=== PATIENT | male | born 1935 | race Caucasian/White ===

== ENCOUNTER 2024-04-15 02:46 | Observation (INO) | payer MEDICARE, OTHER, SELFPAY ==
[2024-04-14 17:26] VITALS: BP 133/52
--- NOTE | 2024-04-14 17:28 | ED.GENMED ---
ED Provider Triage
<CHRISS Miller - Last Filed: 04/14/24 17:34>
-
Patient seen by provider in Triage?: Seen in Triage
Attestation: A medical screening examination has been initiated by a qualified medical provider. Based on the assessment performed at this time, it has been determined that an emergent medical condition may exist and the patient has been informed
that further medical evaluation and possible additional diagnostic testing may be needed.
HPI: 88 yr old male brought by family for n/v/d . Started at 3 pm. Vomited at least 6 times, 2x diarrhea. Family also reports pt seems mildly short winded every since s/s of n/v/d started. Pt denies shortness of breath now .
GENERAL: Alert , in no apparent distress
EYE: No visual abnormalities.
NECK: Trachea midline
ENT: No visible abnormalities.
LUNGS: No acute respiratory distress
NEUROLOGICAL: Alert and oriented
SKIN: Skin intact. No visible changes.
MUSCULOSKELETAL: Moving extremities normally
PSYCH: Normal and appropriate interaction.
This is a medical evaluation conducted in person to initiate diagnostic evaluation and provide initial therapeutics. Please see further documentation by the treating clinician.
History of Present Illness
<CHRISS Miller - Last Filed: 04/14/24 17:34>
General
Chief Complaint: Abdominal Symptoms
Time Seen by Provider: 04/14/24 21:27
<CHRISS Leon - Last Filed: 04/15/24 02:29>
General
Source: patient
Exam Limitations: none
History of Present Illness
History of Present Illness:
This is a 88 year old male that comes in with c/o vomiting and diarrhea. States that this started at 3pm today. Family states that he was so weak that he was unable to get out of the chair to get to the bathroom. State that he had a little chest
pain with SOB and abd pain. States that he was also chilled. Denies any fever, headache, dizziness. Patient has chronic indwelling curran catheter.
Review of Systems
<CHRISS Leon - Last Filed: 04/15/24 02:29>
Review of Systems
All Other Systems: ROS reviewed and negative except as documented in HPI and ROS
Constitutional: Reports chills; Denies fever
EENT: Reports no symptoms
Respiratory: Reports trouble breathing; Denies cough
Cardiac: Reports chest pain
ABD/GI: Reports abdominal pain, nausea, vomiting and diarrhea
: Reports no symptoms
Musculoskeletal: Reports no symptoms
Skin: Reports no symptoms
Neurological: Reports weakness; Denies dizzy or headache
Psychiatric: Reports no symptoms
Phy Exam
<CHRISS Leon - Last Filed: 04/15/24 02:29>
General Physical Exam
General Presentation: no apparent distress
General age: appears stated age
General Skin: warm and dry
General Habitus: elderly
General Mental: alert
General Hydration: dry mucous membranes
ENT Exam
ENT Exam: TM's normal, pharynx normal and neck supple
Eye Exam
Eye Exam: EOMI
Cardiovascular Exam
Cardiovascular Exam: regular rate/rhythm and normal peripheral pulses
Pulmonary Exam
Pulmonary Exam: lungs clear, no respiratory distress, no rales, chest non tender, no crackles, no rhonchi, no wheezing and no cough
Gastrointestinal Exam
Gastrointestinal Exam: normal bowel sounds, non tender, soft, no organomegaly, no pulsatile mass and non distended
Musculoskeletal Exam
Musculoskeletal Exam: full ROM and edema (+2 pitting edema of the lower legs)
Skin Exam
Skin Exam: normal color, warm/dry, no rash and no petechia
Psychiatric Exam
Psychiatric Exam: normal mood/affect
Course
<CHRISS Miller - Last Filed: 04/14/24 17:34>
Orders/Labs/Results
Orders:
Orders
04/14/24 17:31
Chest [CR Chest - 2 Views ] Urgent
Comment:
Reason For Exam: SOB
04/14/24 17:32
Ondansetron Orally Disint [Zofran Odt (Orally Disintegrating)] 4 mg PO NOW STA
04/14/24 17:46
Complete Blood Count/With Diff Urgent
Comprehensive Metabolic Panel Urgent
04/14/24 22:03
0.9% Sodium Chloride 1000 ml [Nss] 1,000 ml IV BOLUS
Ondansetron Injectable [Zofran] 4 mg IV NOW STA
04/14/24 22:06
Electrocardiogram (*1) Urgent
Reason for Study: Chest Pain
EKG- Treatment ONCE
04/14/24 23:40
Troponin I Urgent
Norovirus by PCR Urgent
JOLLY Source: Feces/Stool
Specimen Description:
Date Specimen was Collected: 04/14/24
Time Specimen was Collected: 22:06
04/15/24 00:15
CT Abd/pelvis W Iv Cont Urgent
Reason For Exam: abd pain
04/15/24 02:24
Admit/Transfer Patient As Directed
Co-Sign Provider:
Level of Care: Observation services
Assign to:: Medical/Surgical
Physician / Group: Dax
Diagnosis: Gastroenteritis, L1 Compression Fracture
PRN Pain Medication Management As Directed
May give lesser potent ordered pain med per pt: Yes
preference::
Protocol:: Medication orders for pain may be administered in a
manner that supports deferring to patient preference
when the pt is:
- Requesting an ordered lesser potent pain medication.
Least to most potent pain medications are defined
as: acetaminophen < NSAID < tramadol < opioids
(morphine, oxycodone, hydromorphone).
- Requesting a lesser dose of the same medication IF
ORDERED.
- Requesting a less intrusive route of administration
if both routes are prescribed by the provider (PO <
IV).
04/15/24 02:25
Code Status As Directed
Resuscitation Status: Do not resuscitate
Reached after discussion with pt or family/Healthcare POA: Yes
DNR Bracelet Application ONCE
Abnormal Lab Results
04/14/24
17:46
RBC 3.52 L 10^6/uL
(4.70-6.10)
Hgb 11.4 L g/dL
(13.0-18.0)
Hct 34.5 L %
(39.0-52.0)
MCV 98.0 H fL
(80.0-94.0)
MCH 32.4 H pg
(27.0-31.0)
RDW 14.7 H %
(11.5-14.5)
MPV 10.7 H fL
(7.4-10.4)
Absolute Neuts (auto) 7.9 H 10^3/uL
(1.4-6.5)
Absolute Lymphs (auto) 1.0 L 10^3/uL
(1.2-3.4)
Neutrophils % 81.6 H %
(42.2-75.2)
Lymphocytes % 10.6 L %
(20.5-51.1)
Potassium 5.5 H mmol/L
(3.5-5.1)
Glucose 208 H mg/dl
(70-99)
AST 69 H U/L
(17-59)
Alkaline Phosphatase 260 H U/L
(38-126)
04/14/24 17:46
04/14/24 17:46
Vital Signs
Initial and Last Documented VS:
Initial Vital Signs
Temp Pulse Resp BP Pulse Ox
98.6 F 85 18 133/52 94
04/14/24 17:26 04/14/24 17:26 04/14/24 17:26 04/14/24 17:26 04/14/24 17:26
Last Documented Vital Signs
Temp Pulse Resp BP Pulse Ox
98.6 F 72 18 155/59 96
04/14/24 17:26 04/14/24 21:30 04/14/24 21:33 04/14/24 21:28 04/14/24 21:30
<CHRISS Leon - Last Filed: 04/15/24 02:29>
Orders/Labs/Results
Orders:
Orders
04/14/24 17:31
Chest [CR Chest - 2 Views ] Urgent
Comment:
Reason For Exam: SOB
04/14/24 17:32
Ondansetron Orally Disint [Zofran Odt (Orally Disintegrating)] 4 mg PO NOW STA
04/14/24 17:46
Complete Blood Count/With Diff Urgent
Comprehensive Metabolic Panel Urgent
04/14/24 22:03
0.9% Sodium Chloride 1000 ml [Nss] 1,000 ml IV BOLUS
Ondansetron Injectable [Zofran] 4 mg IV NOW STA
04/14/24 22:06
Electrocardiogram (*1) Urgent
Reason for Study: Chest Pain
EKG- Treatment ONCE
04/14/24 23:40
Troponin I Urgent
Norovirus by PCR Urgent
JOLLY Source: Feces/Stool
Specimen Description:
Date Specimen was Collected: 04/14/24
Time Specimen was Collected: 22:06
04/15/24 00:15
CT Abd/pelvis W Iv Cont Urgent
Reason For Exam: abd pain
04/15/24 02:24
Admit/Transfer Patient As Directed
Co-Sign Provider:
Level of Care: Observation services
Assign to:: Medical/Surgical
Physician / Group: Dax
Diagnosis: Gastroenteritis, L1 Compression Fracture
PRN Pain Medication Management As Directed
May give lesser potent ordered pain med per pt: Yes
preference::
Protocol:: Medication orders for pain may be administered in a
manner that supports deferring to patient preference
when the pt is:
- Requesting an ordered lesser potent pain medication.
Least to most potent pain medications are defined
as: acetaminophen < NSAID < tramadol < opioids
(morphine, oxycodone, hydromorphone).
- Requesting a lesser dose of the same medication IF
ORDERED.
- Requesting a less intrusive route of administration
if both routes are prescribed by the provider (PO <
IV).
04/15/24 02:25
Code Status As Directed
Resuscitation Status: Do not resuscitate
Reached after discussion with pt or family/Healthcare POA: Yes
DNR Bracelet Application ONCE
Abnormal Lab Results
04/14/24
17:46
RBC 3.52 L 10^6/uL
(4.70-6.10)
Hgb 11.4 L g/dL
(13.0-18.0)
Hct 34.5 L %
(39.0-52.0)
MCV 98.0 H fL
(80.0-94.0)
MCH 32.4 H pg
(27.0-31.0)
RDW 14.7 H %
(11.5-14.5)
MPV 10.7 H fL
(7.4-10.4)
Absolute Neuts (auto) 7.9 H 10^3/uL
(1.4-6.5)
Absolute Lymphs (auto) 1.0 L 10^3/uL
(1.2-3.4)
Neutrophils % 81.6 H %
(42.2-75.2)
Lymphocytes % 10.6 L %
(20.5-51.1)
Potassium 5.5 H mmol/L
(3.5-5.1)
Glucose 208 H mg/dl
(70-99)
AST 69 H U/L
(17-59)
Alkaline Phosphatase 260 H U/L
(38-126)
04/14/24 17:46
04/14/24 17:46
H/H slightly low. Anemia, Hyperkalema, Hyperglycemia. AST elevation. Alk phos elevation
Vital Signs
Initial and Last Documented VS:
Initial Vital Signs
Temp Pulse Resp BP Pulse Ox
98.6 F 85 18 133/52 94
04/14/24 17:26 04/14/24 17:26 04/14/24 17:26 04/14/24 17:26 04/14/24 17:26
Last Documented Vital Signs
Temp Pulse Resp BP Pulse Ox
98.6 F 72 18 155/59 96
04/14/24 17:26 04/14/24 21:30 04/14/24 21:33 04/14/24 21:28 04/14/24 21:30
<CHRISS Leon - Last Filed: 04/15/24 02:29>
MDM/Problems Addressed
Differential Diagnosis Includes:
Norovirus, Weakness
MDM/Problems Addressed:
This is a 88 year old male that comes in with c/o vomiting and diarrhea. States that this started today and was unable to get out of the chair.
Will check lab, Chest x-ray, sent stool and give IV fluids.
Into see patient. Patient was sleeping but when awake state that he has pain now also in the back and lower abd.
Back into see patient and family. Explained that he has Enteritis which is causing the vomiting and diarrhea. This is viral and will go away on its own. The back pain is due to a L1 fracture. Patient has been admitted and the hospitalist have been
notifed.
Chronic conditions affecting care: DM and Cancer
Acute Exacerbation and/or Progression of Chronic Illness:
NA
<CHRISS Leon - Last Filed: 04/15/24 02:29>
*Radiology
Radiology exam reviewed: radiology read reviewed (Chest-No active cardiopulmonary disease. CT night hawk- Acute fracture through the L1 vertebral body, with mild widening of the anterior fracture fragments. Mildly prominent loops of small bowel
within the central abdomen, may represent underlying enteritis. Fluid throughout the colon, which can ), all reviewed NAD by ED Provider (CT cont- seen in the underlying diarrheal state. Incidentals: Small hiatal hernia. Cholelithiasis. No bowel
obstruction. Normal appendix. No obstructive uropathy. No hepatic or pancreatic mass. No abdominal aortic aneurysm. Bibasilar atelectasis. Calcified coronary atherosclerosis. ) and other (CT cont- NO acute abnormality within the visualized soft
tissues. )
*Pulse Oximetry
Patient hypoxic: no
*EKG
Interpreted by ED Provider?: Yes
Heart Rate: 76
Rate: normal
Rhythm: sinus
[place]: left axis deviation
Interval: first degree heart block
QRS Pattern: normal QRS
Ischemia: no ischemia
*Forest Economist Interpretation
Rate: normal
Heart Rate: 71
Rhythm: sinus
*Critical Care Note
Total Time (30-74mins, 75-104mins- exclusive of procedures): Not Applicable
ED Attending Note
<CHRISS Miller - Last Filed: 04/14/24 17:34>
-
Portions of this chart may have been created with voice recognition software.� Occasional wrong word or��sound alike� substitutions may have occurred due to the inherent limitations of voice recognition software.
Discharge Plan
Departure
Patient Disposition: Admit
Date of Disposition: 04/15/24
Time of Disposition: 01:41
Admit to: Med/Surg
Presentation/result/management discussed w/ accepting MD/DO: Hospitalist
Patient with high blood pressure during this ER visit?: Yes
Condition: Good
Covid-19: Not Applicable
Discharge Problem:
Weakness, Abdominal pain, vomiting, and diarrhea, Fracture of L1 vertebra
Prescriptions:
No Action
atorvastatin 20 mg Tablet
20 mg PO HS
Theragen Tablet
1 tab PO DAILY
aspirin 81 mg Tablet,Delayed Release (Dr/Ec)
81 mg PO DAILY
metformin 1,000 mg Tablet
1,000 mg PO BID
losartan 25 mg Tablet
25 mg PO DAILY
ibuprofen 200 mg Tablet
400 mg PO Q8HPRN PRN (Reason: mild pain)
metoprolol succinate 25 mg Tablet Extended Release 24 Hr
12.5 mg PO DAILY
glipizide 5 mg Tablet
5 mg PO BID
insulin glargine U-300 conc [Toujeo SoloStar U-300 Insulin] 300 unit/mL (1.5 mL) Insulin Pen
40 unit SC HS
Referrals:
Josh Varela MD [Family Provider] -
Interventions
Interventions:
*Risk Screen - Suicide Last Done: 04/14/24 17:26
*General Assessment Last Done: 04/14/24 17:26
*Neglect/Abuse Screening Last Done: 04/14/24 17:26
ED- Fall Risk Assessment Last Done: 04/14/24 21:42
*ED COVID-19 Vaccine History Last Done: 04/14/24 21:34
GM-Hqtysb-Zhazlqfhct Assessment Last Done: 04/14/24 21:34
Discharge Date and Time
Print Language: LUXEMBOURGISH
[2024-04-14] MEDS: ZOFRAN ODT (ORALLY DISINTEGRATING) 4 MG PO (17:35)
[2024-04-14 18:05] LABS: % Basophils 0.2 % (0-2); % Immature Granulocytes 0.3 % (0-0.5); % Lymphocytes 10.6 % (20.5-51.1); % Monocytes 6.3 % (1.7-9.3); % Neutrophils 81.6 % (42.2-75.2); Absolute Eosinophils 0.1 10^3/uL (0-0.7); Absolute Monocytes 0.6 10^3/uL (0.1-0.6); Absolute Neutrophils 7.9 10^3/uL (1.4-6.5); Hematocrit 34.5 % (39.0-52.0); Hemoglobin 11.4 g/dL (13.0-18.0); Mean Corpuscular Hgb 32.4 pg (27.0-31.0); Mean Platelet Volume 10.7 fL (7.4-10.4); Nucleated Red Blood Cells % 0 % (-); Platelet Count 138 10^3/uL (130-400); Red Blood Cell Count 3.52 10^6/uL (4.70-6.10); Red Cell Dist. Width 14.7 % (11.5-14.5); White Blood Cell Count 9.7 10^3/uL (4.8-10.8)
[2024-04-14 18:16] LABS: ALT (SGPT) 46 U/L (0-50); AST (SGOT) 69 U/L (17-59); Albumin 4.1 g/dl (3.5-5.0); Alkaline Phosphatase 260 U/L (38-126); Blood Urea Nitrogen 18 mg/dl (9-20); Calcium 9.5 mg/dl (8.4-10.2); Carbon Dioxide 24 mmol/L (22-30); Chloride 100 mmol/L (98-107); Glucose 208 mg/dl (70-99); Potassium 5.5 mmol/L (3.5-5.1); Sodium 136 mmol/L (135-145); Total Bilirubin 0.7 mg/dl (0.2-1.3); Total Protein 7.7 g/dl (6.3-8.2); eGFR > 60.00
[2024-04-14 21:28] VITALS: BP 155/59
[2024-04-14 21:33] VITALS: BMI 34.5
[2024-04-14 22:00] VITALS: BP 135/64
[2024-04-14 23:00] VITALS: BP 146/65
[2024-04-14] MEDS: ZOFRAN 4 MG IV (23:57)
[2024-04-14] MEDS: NSS 1000 IV (23:59)
[2024-04-15 01:01] LABS: Troponin I 0.014 ng/ml
--- NOTE | 2024-04-15 02:30 | HPS.HSE ---
Family Physician
-
Family Physician: Josh Varela
Chief Complaint
-
N/V/D
History of Present Illness
Patient is an 88y M with PMH significant for ASCVD, DM-II and prostate cancer / MACEDO who presents to ED complaining of N/V/D. History obtained from patient and his family at the bedside. Patient states that he developed sudden onset of N/V/D
around 3 PM today. He lives at assisted living facility and several residents have had similar symptoms lately. He denies any recent abx use or other illness. Patient had multiple episodes of stool incontinence this afternoon and continued emesis
and ultimately presented to the ED for further evaluation.
Patient also notes that he has suffered a few falls recently. He ambulates with a walker and family has noted gradual loss of balance / unsteady gait.
His most recent fall was Janelle when he fell backwards and 'sat down hard'. He was helped up by family. He has been able to ambulate with his walker since that time - though he does have discomfort with [id number] and other such position
changes.
Medical History
Past Medical History
Past Medical History: Reports Other
Additional Past Medical History:
ASCVD
Hypertension
DM-II
Prostate Cancer
Chronic Atonic Bladder
Skin Cancer
Obesity
Past Surgical History: Reports Other
Additional Past Surgical History:
PTCA with Stent (x 2)
Bilateral Shoulder Surgeries
Mohs Surgery
Social History
Tobacco: Former Smoker
Alcohol: None
Drug: None
Living: Assisted Living
Family History
Family History: Not pertinent
Allergies / Home Medications
Allergies reflects when Allergies were last updated in [facility].
Home Medications with original date entered in [facility]
Allergy/Medication List:
Allergies
Allergy/AdvReac Type Severity Reaction Status Date / Time
amoxicillin Allergy Rash Verified 04/14/24 17:26
Home Medications
aspirin 81 mg tablet,delayed release 81 mg PO DAILY 04/14/24
atorvastatin 20 mg tablet 20 mg PO HS 04/14/24
glipizide 5 mg tablet 5 mg PO BID 04/14/24
ibuprofen 200 mg tablet 400 mg PO Q8HPRN PRN mild pain 04/14/24
insulin glargine U-300 conc 300 unit/mL (1.5 mL) subcutaneous pen (Toujeo SoloStar U-300 Insulin) 40 unit SC HS 04/14/24
losartan 25 mg tablet 25 mg PO DAILY 04/14/24
metformin 1,000 mg tablet 1,000 mg PO BID 04/14/24
metoprolol succinate 25 mg tablet,extended release 24 hr 12.5 mg PO DAILY 04/14/24
therapeutic multivitamin 1 tab PO DAILY 04/14/24
Review of Systems
-
History Source: Patient
A 12 point ROS was completed and negative except as noted: Yes
Constitutional: Reports Fatigue; Denies Fever or Chills
Respiratory: Denies Cough or Trouble Breathing
Cardiac: Denies Chest Pain or Palpitations
Abdomen/GI: Reports Abdominal Pain, Nausea, Vomiting and Diarrhea
: Reports Stephens; Denies Flank Pain or Bleeding
Musculoskeletal: Reports Other (Back Pain); Denies Joint Pain or Edema
Neurological: Denies Dizzy or Headache
Psych: Denies Depression or Anxiety
Physical Exam
Vital Signs
Vital Signs
Temp Pulse Resp BP Pulse Ox
98.6 F 72 18 155/59 96
04/14/24 17:26 04/14/24 21:30 04/14/24 21:33 04/14/24 21:28 04/14/24 21:30
Physical Exam
General: Other (88y M in no acute distress.)
HEENT: Moist mucous membranes, PERRLA and Other (Neck supple.)
Respiratory: Clear; No Wheezes, Rales or Rhonchi
Cardiac: S1/S2 and Regular Rhythm; No Murmur
GI: Other (Abdomen is softly distended. Diffusely, mildly tender. Hyperactive bowel sounds.)
Musculoskeletal: No Clubbing, No Cyanosis and No Edema
Neuro: AO x 3
Laboratory Results
-
04/14/24 17:46
04/14/24 17:46
Laboratory Results
Total Bilirubin 0.7 mg/dl (0.2-1.3) 04/14/24 17:46
AST 69 U/L (17-59) H 04/14/24 17:46
ALT 46 U/L (0-50) 04/14/24 17:46
Alkaline Phosphatase 260 U/L (38-126) H 04/14/24 17:46
Troponin I 0.014 ng/ml 04/14/24 23:40
Impression/Plan
-
A/P: Patient is an 88y M with PMH significant for ASCVD, DM and hypertension who presents to ED complaining of N/V/D.
Gastroenteritis
- Observe overnight for further evaluation and treatment.
- Abrupt onset of N/V/D with known sick contacts.
- Afebrile, no significant leukocytosis, CT with vague changes of enteritis and otherwise unremarkable.
- Check Norovirus PCR. Follow contact precautions for now.
- Supportive care with antiemetics, IVFs, etc.
- Follow for clinical improvement.
L1 Compression Fracture
Chronic Ambulatory Dysfunction
- s/p fall on 04/05/24.
- Patient has been ambulatory since; albeit with some pain.
- PT / OT evaluations.
- Continue pain control with Tylenol.
- May benefit from ongoing PT after discharge.
DM-II
- Poorly controlled as an outpatient with A1C > 10%.
- Continue basal : bolus insulin regimen for now.
- Hold oral medications until acute GI symptoms improve.
- Follow glucose and cover with SSI as needed.
ASCVD
- Stable. No current chest pain, dyspnea, etc.
- Continue current med regimen including ASA, statin, etc.
Atonic Bladder
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
- Stable. Maintain Stephens catheter.
DVT Prophylaxis: Subcut Heparin
Code Status: DNR
[2024-04-15 02:53] VITALS: BP 181/76
[2024-04-15 04:00] VITALS: BP 165/76
[2024-04-15] MEDS: MOTRIN 600 MG PO (04:53)
[2024-04-15] MEDS: NSS 1000 IV ×3 (05:00→17:00)
[2024-04-15 05:40] LABS: Hematocrit 32.3 % (39.0-52.0); Hemoglobin 10.9 g/dL (13.0-18.0); Mean Corp Hgb Conc. 33.7 g/dL (33.0-37.0); Mean Corpuscular Hgb 32.8 pg (27.0-31.0); Mean Corpuscular Volume 97.3 fL (80.0-94.0); Mean Platelet Volume 10.5 fL (7.4-10.4); Platelet Count 117 10^3/uL (130-400); Red Blood Cell Count 3.32 10^6/uL (4.70-6.10); Red Cell Dist. Width 14.7 % (11.5-14.5); White Blood Cell Count 5.6 10^3/uL (4.8-10.8)
[2024-04-15 05:45] LABS: Blood Urea Nitrogen 20 mg/dl (9-20); Calcium 8.5 mg/dl (8.4-10.2); Carbon Dioxide 23 mmol/L (22-30); Chloride 100 mmol/L (98-107); Estimated Creatinine Clearance 70 ml/min; Glucose 267 mg/dl (70-99); Potassium 4.6 mmol/L (3.5-5.1); Sodium 134 mmol/L (135-145); eGFR > 60.00
[2024-04-15 06:00] VITALS: BMI 34.5
[2024-04-15 09:30] VITALS: BP 116/56; PULSE 67; O2SAT 94
[2024-04-15] MEDS: ASPIR LOW (ENTERIC COATED) 81 MG PO (09:58)
[2024-04-15] MEDS: TYLENOL 1000 MG PO ×3 (09:58→21:43)
[2024-04-15 09:59] LABS: Glucose - Point of Care 244 mg/dl (70-99)
[2024-04-15] MEDS: TOPROL XL PO (10:06)
[2024-04-15] MEDS: NSS (PRESERVATIVE FREE) 10 ML IV (10:07)
[2024-04-15] MEDS: PROTONIX IV 40 MG IV (10:07)
[2024-04-15] MEDS: HEPARIN 5000 UNITS SC ×2 (10:07→21:43)
[2024-04-15 11:29] LABS: Glucose - Point of Care 253 mg/dl (70-99)
[2024-04-15] MEDS: NOVOLOG FLEXPEN-MODERATE RESISTANCE 5 UNITS SC (11:29)
[2024-04-15 11:57] LABS: Glycohemoglobin (HgbA1c) 11.3 % (4.0-5.6)
[2024-04-15] MEDS: NOVOLOG FLEXPEN-MODERATE RESISTANCE SC (15:11)
--- NOTE | 2024-04-15 16:41 | W.PN.UPDATE ---
Update Note
Progress Note Update
Seen by Dr. Verduzco this morning. Admitted for acute nausea vomiting diarrhea.
Stool culture came back positive for norovirus.
Hesitant to have oral diet as he is still does not feel well. Nausea is much improved no diarrhea.
Continue with symptomatic treatment.
[2024-04-15] MEDS: ZINC OXIDE OINTMENT 1 APPLIC TOPICAL ×2 (16:45→21:43)
[2024-04-15 16:52] VITALS: BP 148/70
[2024-04-15 18:02] LABS: Glucose - Point of Care 182 mg/dl (70-99)
[2024-04-15] MEDS: ULTRAM 25 MG PO (18:15)
[2024-04-15] MEDS: NOVOLOG FLEXPEN-MODERATE RESISTANCE 1 UNITS SC (18:17)
--- NOTE | 2024-04-15 19:44 | PTCARENOTE ---
pt from ED this evening for this nurse. pt with family at bedside. pt norovirus positive but last bm was in AM. pt aaox3. verbalizing 10/10 back pain. verbal for prn received via telephone. heel foams applied. cream applied to rectum and added to
MAR for continuous use. pt on specialty bed at this time. tolerted clear liquid diet. pt and family state that belly seems more firm and distended than usual. no pain when nurse palpated.
[2024-04-15] MEDS: LIPITOR 20 MG PO (21:43)
[2024-04-15] MEDS: LANTUS 0.32 UNITS SC (21:43)
[2024-04-15 22:05] LABS: Glucose - Point of Care 177 mg/dl (70-99)
[2024-04-15] MEDS: MOTRIN 400 MG PO (23:00)
[2024-04-15 23:30] VITALS: BP 127/65
[2024-04-16] MEDS: NSS 1000 IV (01:24)
[2024-04-16 06:00] VITALS: BMI 34.3
[2024-04-16 07:30] VITALS: BP 111/64
[2024-04-16 07:42] LABS: Glucose - Point of Care 130 mg/dl (70-99)
[2024-04-16] MEDS: NOVOLOG FLEXPEN-MODERATE RESISTANCE SC (09:06)
[2024-04-16] MEDS: PROTONIX IV 40 MG IV (09:07)
[2024-04-16] MEDS: ASPIR LOW (ENTERIC COATED) 81 MG PO (09:07)
[2024-04-16] MEDS: NSS (PRESERVATIVE FREE) 10 ML IV (09:08)
[2024-04-16] MEDS: HEPARIN 5000 UNITS SC ×2 (09:08→22:05)
[2024-04-16] MEDS: TOPROL XL 12.5 MG PO (09:09)
[2024-04-16] MEDS: TYLENOL 1000 MG PO ×3 (09:09→22:04)
[2024-04-16] MEDS: ZINC OXIDE OINTMENT 1 APPLIC TOPICAL ×3 (09:16→22:06)
[2024-04-16 11:45] LABS: Glucose - Point of Care 165 mg/dl (70-99)
--- NOTE | 2024-04-16 13:26 | W.PN.HOSP.TC ---
Today's Communication/Plan
-
DC planning
Assessment / Plan
Assessment / Plan
A/P: Patient is an 88y M with PMH significant for ASCVD, DM and hypertension who presents to ED complaining of N/V/D.
Acute Norovirus Gastroenteritis
- Resolved
- Tolerating diet
L1 Compression Fracture
Chronic Ambulatory Dysfunction
- s/p fall on 04/05/24.
- Patient has been ambulatory since; albeit with some pain.
- PT / OT evaluations noted -recommend return to [facility] / but acc to RN today not moving much due to pain.
- Continue pain control with Tylenol.
- CW PT
DM-II
- Poorly controlled as an outpatient with A1C > 10%. 11.3 on this adx
- Continue basal : bolus insulin regimen for now.Adjust insulin as needed
- Resum oral medications until acute GI symptoms improve.
- Follow glucose and cover with SSI as needed.
-Patient seen and assessed Lantus was increased to 40 units in the last month. He follows with PCP for his diabetes management.
ASCVD
- Stable. No current chest pain, dyspnea, etc.
- Continue current med regimen including ASA, statin, etc.
Atonic Bladder
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
- Stable. Maintain Stephens catheter.
DVT Prophylaxis: Subcut Heparin
Code Status: DNR
DC to [facility] depending on PT eval
Anticipated Discharge: Today
Subjective/Interval History
-
Date of Service: April 16, 2024
Resolved GI symptoms of nausea vomiting and diarrhea.
His main complaint is low back pain from his recent vertebral fracture. Denies any radiation to the legs. No leg weakness.
Objective Data
-
Vital Signs:
Vital Signs
Temp Pulse Resp BP Pulse Ox
97.8 F 56 18 111/64 97
04/16/24 07:30 04/16/24 07:30 04/16/24 07:30 04/16/24 07:30 04/16/24 07:30
I&O
04/15/24 04/16/24 04/17/24
06:59 06:59 06:59
Intake Total 200 / 200
Output Total 800 / 800
Balance 200 / -600 -800 / -800
Review of Systems
-
Constitutional: Denies Fever
Respiratory: Denies Trouble Breathing
Cardiac: Denies Chest Pain
Neuro: Denies Dizzy
Physical Exam
-
General: Comfortable
Respiratory: Non Labored Respirations; Negative Accessory Resp Muscle Use
Cardiac: Regular Rhythm and S1/S2
GI: Soft and Nontender
Neuro: AO x 3
Psych: Calm
Data Reviewed
-
Labs: Labs Reviewed by me
[2024-04-16] MEDS: NOVOLOG FLEXPEN-MODERATE RESISTANCE 1 UNITS SC ×2 (13:44→17:39)
[2024-04-16 13:45] VITALS: BP 157/71; PULSE 65; O2SAT 94
[2024-04-16 15:30] VITALS: BP 132/61
--- NOTE | 2024-04-16 15:33 | CM ---
IA completed with pt at bedside.
Pt is an 88yr old male admitted on OBS for gastroenteritis and later finding a compression fx when he had unresolved back spasms.
At baseline, pt lives in an [place] apt at [facility]. Pt is indep at baseline, using a RW for mobility and ADLs.
Pt has a RW, toilet rails, shower chair, and a curran that he self manages.
Pt does his own breakfast prep, but does go to the dining room for lunch and dinner.
Per pt, they are considering hired caregivers. Pt notes that he has an Outpt PT script and plans to do Outpt vs VN.
PCP; Josh Varela
Pharm; [address]
PLAN; Dc to home with Outpt PT
[2024-04-16] MEDS: GLUCOTROL 5 MG PO (16:32)
[2024-04-16 17:22] LABS: Glucose - Point of Care 181 mg/dl (70-99)
[2024-04-16] MEDS: GLUCOPHAGE 1000 MG PO (17:39)
[2024-04-16] MEDS: MOTRIN 400 MG PO (20:15)
[2024-04-16] MEDS: LIPITOR 20 MG PO (22:04)
[2024-04-16] MEDS: LANTUS 0.4 UNITS SC (22:05)
[2024-04-16 22:33] LABS: Glucose - Point of Care 168 mg/dl (70-99)
[2024-04-16 23:22] VITALS: BP 162/84
[2024-04-17 06:00] VITALS: BMI 33.1
[2024-04-17 07:30] VITALS: BP 159/71
[2024-04-17 07:43] LABS: Glucose - Point of Care 98 mg/dl (70-99)
[2024-04-17] MEDS: NOVOLOG FLEXPEN-MODERATE RESISTANCE SC ×3 (07:46→17:01)
[2024-04-17] MEDS: GLUCOPHAGE 1000 MG PO ×2 (08:24→17:47)
[2024-04-17] MEDS: TYLENOL 1000 MG PO ×3 (08:24→21:02)
[2024-04-17] MEDS: TOPROL XL 12.5 MG PO (08:24)
[2024-04-17] MEDS: ASPIR LOW (ENTERIC COATED) 81 MG PO (08:24)
[2024-04-17] MEDS: GLUCOTROL 5 MG PO ×2 (08:24→17:47)
[2024-04-17] MEDS: PROTONIX IV 40 MG IV (08:25)
[2024-04-17] MEDS: NSS (PRESERVATIVE FREE) 10 ML IV (08:25)
[2024-04-17] MEDS: HEPARIN 5000 UNITS SC ×2 (08:25→21:00)
[2024-04-17] MEDS: COZAAR 25 MG PO (08:26)
[2024-04-17] MEDS: ZINC OXIDE OINTMENT 1 APPLIC TOPICAL ×3 (08:26→22:50)
[2024-04-17 12:10] LABS: Glucose - Point of Care 123 mg/dl (70-99)
[2024-04-17 12:11] VITALS: BP 160/74; BP 164/67; PULSE 73; PULSE 74
--- NOTE | 2024-04-17 13:58 | W.PN.HOSP.TC ---
Today's Communication/Plan
-
DC planning
Assessment / Plan
Assessment / Plan
A/P: Patient is an 88y M with PMH significant for ASCVD, DM and hypertension who presents to ED complaining of N/V/D.
Acute Norovirus Gastroenteritis
- Resolved
- Tolerating diet
L1 Compression Fracture
Chronic Ambulatory Dysfunction
- s/p fall on 04/05/24.
- Patient has been ambulatory since; albeit with some pain.
- PT / OT evaluations noted -recommend SNF yesterday. Patient would like to go to SNF .
- Continue pain control with Tylenol.
- CW PT
DM-II
- Poorly controlled as an outpatient with A1C > 10%. 11.3 on this adx
- Continue basal : bolus insulin regimen for now.Adjust insulin as needed
- Resume oral medications until acute GI symptoms improve.
- Follow glucose and cover with SSI as needed. Blood sugars here on diabetic diet has been decent.Acc to CHRISTIANO at bedside his prior HbA1c was as high as 13.
- Patient seen and assessed Lantus was increased to 40 units in the last month. He follows with PCP for his diabetes management.
ASCVD
- Stable. No current chest pain, dyspnea, etc.
- Continue current med regimen including ASA, statin, etc.
Atonic Bladder
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
- Stable. Maintain Stephens catheter.
DVT Prophylaxis: Subcut Heparin
Code Status: DNR
DC to rehab when bed available
Anticipated Discharge: Within 24 hours
Subjective/Interval History
-
Date of Service: April 17, 2024
Resolved GI symptoms.
Still with low back pain but manageable with medication.
Objective Data
-
Vital Signs:
Vital Signs
Temp Pulse Resp BP Pulse Ox
98.0 F 61 16 159/71 94
04/17/24 07:30 04/17/24 07:30 04/17/24 07:30 04/17/24 07:30 04/17/24 07:30
I&O
04/16/24 04/17/24 04/18/24
06:59 06:59 06:59
Intake Total 200 / 200 1660 / 1660
Output Total 2850 / 2850
Balance 200 / -600 -1190 / -1190
Review of Systems
-
Respiratory: Denies Trouble Breathing
Cardiac: Denies Chest Pain
Abdomen/GI: Denies Abdominal Pain, Nausea or Vomiting
Neuro: Denies Dizzy
Physical Exam
-
General: Comfortable
Respiratory: Non Labored Respirations; Negative Accessory Resp Muscle Use
Cardiac: Regular Rhythm and S1/S2
GI: Soft and Nontender
Neuro: AO x 3
Data Reviewed
-
Labs: Labs Reviewed by me
--- NOTE | 2024-04-17 14:00 | CM ---
CM spoke with Attending. Reviewed chart and spoke with pt and son. Explained role and discussed anticipated dc plan/options.
Discussed PT eval/recs. Pt stated he now interested in [facility] SNF- he has continued difficulty with getting out of the chair and his legs feel like cement. Discussed SNF's close to pts [place] apartment. Request is for [facility]. CM requested 2 additional
choices.
Choices as follows: 1. [facility] 2. [facility].
Referrals sent for review- pending return calls to discuss pt further.
?BLS 2/2 recent Norovirus dx this admit. Diarrhea now resolved x24hrs and tolerating diet, per pt and MD.
CM/SW will continue to follow to ensure a safe and timely discharge.
[2024-04-17 15:25] VITALS: BP 159/72
[2024-04-17 17:00] LABS: Glucose - Point of Care 116 mg/dl (70-99)
[2024-04-17] MEDS: MOTRIN 400 MG PO (18:40)
[2024-04-17] MEDS: LIPITOR 20 MG PO (21:02)
[2024-04-17] MEDS: LANTUS SC (22:00)
[2024-04-17 22:15] LABS: Glucose - Point of Care 90 mg/dl (70-99)
[2024-04-17] MEDS: LANTUS 0.1 UNITS SC (22:50)
[2024-04-17 23:22] VITALS: BP 158/72
[2024-04-18] MEDS: MOTRIN 400 MG PO ×2 (03:02→23:38)
[2024-04-18 06:00] VITALS: BMI 33.0
[2024-04-18 07:30] VITALS: BP 149/65
[2024-04-18 07:47] LABS: Glucose - Point of Care 88 mg/dl (70-99)
[2024-04-18] MEDS: NOVOLOG FLEXPEN-MODERATE RESISTANCE SC ×2 (07:51→16:59)
[2024-04-18] MEDS: GLUCOTROL 5 MG PO ×2 (08:16→16:57)
[2024-04-18] MEDS: TOPROL XL 12.5 MG PO (08:16)
[2024-04-18] MEDS: GLUCOPHAGE 1000 MG PO ×2 (08:16→16:57)
[2024-04-18] MEDS: ASPIR LOW (ENTERIC COATED) 81 MG PO (08:16)
[2024-04-18] MEDS: NSS (PRESERVATIVE FREE) 10 ML IV (08:17)
[2024-04-18] MEDS: PROTONIX IV 40 MG IV (08:18)
[2024-04-18] MEDS: HEPARIN 5000 UNITS SC ×2 (08:18→21:14)
[2024-04-18] MEDS: COZAAR 25 MG PO (08:18)
[2024-04-18] MEDS: TYLENOL 1000 MG PO ×3 (08:23→21:14)
[2024-04-18] MEDS: ZINC OXIDE OINTMENT 1 APPLIC TOPICAL ×3 (08:24→21:15)
[2024-04-18 09:47] VITALS: BP 147/60; BP 151/62; PULSE 77; PULSE 78
[2024-04-18 11:14] LABS: Glucose - Point of Care 156 mg/dl (70-99)
--- NOTE | 2024-04-18 11:28 | W.PN.HOSP.TC ---
Today's Communication/Plan
-
Discharge to SNF when bed available
Assessment / Plan
Assessment / Plan
Gen-AAOx3, NAD
HEENT-NC, AT, anicteric, clear oral mm
Neck-supple
CV-reg, no M, +S1/S2
Lungs-clear B/L
Abd-soft, NT, ND, Stephens catheter draining clear yellow urine
Musculoskeletal-no edema, no deformity, midline low back TTP
Skin-warm and dry
Neuro-grossly non-focal
Psych-calm, cooperative
A/P: Patient is an 88y M with PMH significant for ASCVD, DM and hypertension who presents to ED complaining of N/V/D.
Acute Norovirus Gastroenteritis
- Resolved
- Tolerating diet
L1 Compression Fracture
Chronic Ambulatory Dysfunction
- s/p fall on 04/05/24.
- Patient has been ambulatory since; albeit with some pain.
- PT / OT evaluations noted -recommend SNF, arrangements pending.
- Continue pain control with Tylenol and tramadol.
- CW PT
DM-II
- Poorly controlled as an outpatient with A1C > 10%. 11.3 on this adx, however well-controlled with metformin and glipizide alone, home long-acting insulin currently being held
- Continue glipizide and metformin, additional sliding scale insulin as needed, will hold long-acting insulin for now and have discussed with patient the need to follow-up closely with his PCP regarding further changes to diabetic regimen as needed
- Lantus was increased to 40 units in the last month by PCP
ASCVD
- Stable. No current chest pain, dyspnea, etc.
- Continue current med regimen including ASA, statin, etc.
Atonic Bladder
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
- Stable. Maintain Stephens catheter.
DVT Prophylaxis: Subcut Heparin
Code Status: DNR
DC to rehab when bed available
Anticipated Discharge: Within 24 hours
Subjective/Interval History
-
Date of Service: April 18, 2024
Patient was seen and examined at bedside this morning. Diarrhea has resolved and he is tolerating a regular diet. He does complain of ongoing low back pain when laying flat but he is comfortable when flexed at the hip when sitting upright. He is
awaiting SNF placement.
Objective Data
-
Vital Signs:
Vital Signs
Temp Pulse Resp BP Pulse Ox
98.1 F 55 18 149/65 97
04/18/24 07:30 04/18/24 07:30 04/18/24 07:30 04/18/24 08:16 04/18/24 10:27
I&O
04/17/24 04/18/24 04/19/24
06:59 06:59 06:59
Intake Total 1660 / 1660 1540 / 1540
Output Total 2850 / 2850 1900 / 1900
Balance -1190 / -1190 -360 / -360
Review of Systems
-
History Source: Patient
All other systems: Reviewed and negative
Data Reviewed
-
Diagnostic Radiology: Report Reviewed by me
Labs: Labs Reviewed by me
--- NOTE | 2024-04-18 11:39 | W.DCSUMMARY ---
Discharge Summary
Discharge Data
Date of Admission: 04/15/24
Date of Discharge: 04/18/24
-
Pending Results: No
Hospital Course
Mr. Jean is an 88-year-old male with a medical history of prostate cancer with bladder outlet obstruction (chronic Stephens catheter in place), diabetes mellitus, and ASCVD who presented with low back pain and diarrhea. He was treated supportively
for gastroenteritis and is now tolerating a regular diet. His diarrhea has resolved. Imaging of his low back showed a L1 compression fracture which is likely due to multiple recent falls. His pain is moderately well-controlled with pain
medication. His pain is most prominent with laying flat and relieved with hip flexion such as when sitting upright. He is a good candidate for SNF for physical and occupational therapy. He will be discharged to SNF following this hospitalization.
Of note, his blood glucose was initially poorly controlled with A1c of 11.3%. He reported that his PCP recently increased his home long-acting insulin from 36 to 40 units daily, in addition to his home glipizide and metformin. However his blood
glucose was quickly well-controlled with glipizide and metformin alone, and he infrequently required additional insulin per sliding scale. In order to avoid hypoglycemia, he will be discharged on his home regimen of glipizide and metformin, with
additional sliding scale as needed. His long-acting insulin is currently being held. However he should follow-up closely with his PCP regarding further adjustments to his diabetic regimen as needed.
Discharge Plan
-
Patient Disposition: Longterm/SNF
Discharge Diagnosis/Procedures: L1 compression fracture
Condition: Good
Diet: No restrictions
Activity: As tolerated and With Walker
Bathing Restrictions: None
Other Services: PT and OT
Activity Restrictions/Additional Instructions:
You were admitted for treatment and management of gastroenteritis and low back pain. Your gastroenteritis has resolved and you are now tolerating a regular diet. Your low back pain is due to compression fracture of your L1 vertebrae, which was
likely caused by recent falls. It is important to continue physical therapy to increase your overall strength after an acute illness and help your body compensate for your vertebral fracture. Please note, your blood sugars have been very
well-controlled during this admission without the use of long-acting insulin. Your home long-acting insulin has been held for now and you should follow-up closely with your primary care physician regarding adjustments to your insulin regimen as
needed. You are being continued on your home metformin and the regimen of short acting sliding scale insulin has been prescribed for now to be used as needed.
Referrals:
Josh Varela MD [Family Provider] -
Additional Discharge Medication Instructions: Holding home long-acting insulin due to well-controlled blood sugars without insulin use during this admission, have prescribed sliding scale insulin to be used as needed for now, patient should
follow-up with his PCP regarding ongoing management of diabetes and insulin regimen
Prescriptions:
New
acetaminophen [Tylenol Extra Strength] 500 mg Tablet
1,000 mg PO TID Qty: 20 0RF
tramadol 50 mg Tablet
25 mg PO Q6HPRN PRN (Reason: MODERATE PAIN) Qty: 5 0RF
Lyumjev U-100 Insulin 100 unit/mL solution
1 sliding scale dose SC DIRECTED Qty: 10 0RF
Continued
atorvastatin 20 mg Tablet
20 mg PO HS
therapeutic multivitamin Tablet
1 tab PO DAILY
aspirin 81 mg Tablet,Delayed Release (Dr/Ec)
81 mg PO DAILY
metformin 1,000 mg Tablet
1,000 mg PO BID
losartan 25 mg Tablet
25 mg PO DAILY
ibuprofen 200 mg Tablet
400 mg PO Q8HPRN PRN (Reason: mild pain)
metoprolol succinate 25 mg Tablet Extended Release 24 Hr
12.5 mg PO DAILY
glipizide 5 mg Tablet
5 mg PO BID
Discontinued
insulin glargine U-300 conc [Toujeo SoloStar U-300 Insulin] 300 unit/mL (1.5 mL) Insulin Pen
40 unit SC HS
Discharge Orders:
Discharge Patient (As Directed); Ordered 04/18/24
Ordered By: Yaya José
Discharge Date and Time
Print Language: NEW ZEALAND[place]
[2024-04-18 12:37] LABS: Glucose - Point of Care 168 mg/dl (70-99)
[2024-04-18] MEDS: NOVOLOG FLEXPEN-MODERATE RESISTANCE 1 UNITS SC (13:06)
[2024-04-18 14:45] VITALS: BP 145/60; PULSE 65; O2SAT 97
[2024-04-18 15:27] VITALS: BP 145/60; PULSE 63; O2SAT 96
[2024-04-18 15:49] VITALS: BP 145/60
--- NOTE | 2024-04-18 16:01 | CM ---
Reviewed the chart notes and spoke with the patient and son-in-law at the bedside. Referrals sent to area SNF, no clinicals attached. Referral to [facility] with clinicals and [facility] sent for [facility] waiver program. Per Maria Victoria, Administration at
[facility] able to accept tomorrow. Maria Victoria informed of Norovirus + 04/14/2024. [facility] Liaison Rachel informed of acceptance. Patient will discharge to [facility] tomorrow. Will need to reach out to director industrial nursing Jesica in morning.
continues to be available to patient/family and is monitoring medical plan for needs at discharge.
Plan: Discharge to [facility] Thursday.
[2024-04-18 16:57] LABS: Glucose - Point of Care 117 mg/dl (70-99)
[2024-04-18] MEDS: LIPITOR 20 MG PO (21:14)
[2024-04-18 22:30] LABS: Glucose - Point of Care 112 mg/dl (70-99)
[2024-04-18] MEDS: LANTUS 0.4 UNITS SC (22:30)
[2024-04-18 23:44] VITALS: BP 157/73
[2024-04-19 06:00] VITALS: BMI 31.4
[2024-04-19 07:50] VITALS: BP 141/64
[2024-04-19] MEDS: GLUCOTROL 5 MG PO (08:12)
[2024-04-19] MEDS: TYLENOL 1000 MG PO (08:12)
[2024-04-19] MEDS: ASPIR LOW (ENTERIC COATED) 81 MG PO (08:12)
[2024-04-19] MEDS: PROTONIX 40 MG PO (08:12)
[2024-04-19] MEDS: HEPARIN 5000 UNITS SC (08:13)
[2024-04-19] MEDS: GLUCOPHAGE 1000 MG PO (08:13)
[2024-04-19] MEDS: TOPROL XL 12.5 MG PO (08:13)
[2024-04-19] MEDS: COZAAR 25 MG PO (08:13)
[2024-04-19 08:14] LABS: Glucose - Point of Care 76 mg/dl (70-99)
[2024-04-19] MEDS: ZINC OXIDE OINTMENT 1 APPLIC TOPICAL (08:14)
[2024-04-19] MEDS: NOVOLOG FLEXPEN-MODERATE RESISTANCE SC ×2 (08:14→12:16)
[2024-04-19 10:32] LABS: COVID-19 Antigen Negative (Negative)
--- NOTE | 2024-04-19 11:26 | CM ---
Reviewed chart notes and spoke with Jesica Pyrometallurgical Engineer with [facility]. She has received auth from [facility] for the patient starting today. CM continues to be available to patient/family and is monitoring medical plan for needs at discharge.
Plan: Discharge to [facility] today after 330pm. Son-in-law will provide transportation.
Call report to: [phone]
Fax report to: [phone]
[2024-04-19 12:15] LABS: Glucose - Point of Care 135 mg/dl (70-99)
[2024-04-19 15:00] VITALS: BP 134/63
== END 2024-04-19 15:29 ==
LOC: 2 NORTH 02:46
PROVIDERS: Clinical Nurse Specialist Family Health; Nurse Practitioner; ADMITTING PHYSICIAN Hospitalist; ATTENDING PHYSICIAN Internal Medicine; EMERGENCY PHYSICIAN Emergency Medicine; FAMILY PHYSICIAN Internal Medicine
DX: A08.11 Acute gastroenteropathy due to Norwalk agent (principal); R11.2 Nausea with vomiting, unspecified; R19.7 Diarrhea, unspecified; R07.9 Chest pain, unspecified; S32.019A Unspecified fracture of first lumbar vertebra, initial encounter for closed fracture; W19.XXXA Unspecified fall, initial encounter; R26.2 Difficulty in walking, not elsewhere classified; M54.50 Low back pain, unspecified; R06.02 Shortness of breath; R10.9 Unspecified abdominal pain; R15.9 Full incontinence of feces; E87.5 Hyperkalemia; J98.11 Atelectasis; D64.9 Anemia, unspecified; E11.65 Type 2 diabetes mellitus with hyperglycemia; K44.9 Diaphragmatic hernia without obstruction or gangrene; K80.20 Calculus of gallbladder without cholecystitis without obstruction; I25.10 Atherosclerotic heart disease of native coronary artery without angina pectoris; N31.2 Flaccid neuropathic bladder, not elsewhere classified; I10 Essential (primary) hypertension; R94.31 Abnormal electrocardiogram [ECG] [EKG]; E66.9 Obesity, unspecified; Z66 Do not resuscitate; Z11.52 Encounter for screening for COVID-19; Z60.2 Problems related to living alone; Z79.82 Long term (current) use of aspirin; Z79.4 Long term (current) use of insulin; Z79.84 Long term (current) use of oral hypoglycemic drugs; Z85.46 Personal history of malignant neoplasm of prostate; Z68.31 Body mass index [BMI] 31.0-31.9, adult; Z95.5 Presence of coronary angioplasty implant and graft; Z87.891 Personal history of nicotine dependence; Z88.0 Allergy status to penicillin; Z75.1 Person awaiting admission to adequate facility elsewhere
CPT/HCPCS: 71046; 74177; 80048; 80053; 82962; 83036; 84484; 85025; 85027; 87070; 87798; 87811; 93005; 96374; 97116; 97166; 97530; 97535; 99285; G0378; Q9967

== ENCOUNTER → 2024-10-27 12:28 | Outpatient (REF) | payer MEDICARE, OTHER, SELFPAY | LOC: RCS 12:28 | PROVIDERS: ATTENDING PHYSICIAN Internal Medicine Cardiovascular Disease; FAMILY PHYSICIAN Internal Medicine | DX: I25.10 Atherosclerotic heart disease of native coronary artery without angina pectoris (principal); I65.23 Occlusion and stenosis of bilateral carotid arteries | CPT/HCPCS: 93306 ==

== ENCOUNTER 2025-03-07 11:32 | Emergency (ER) | payer MEDICARE, OTHER, SELFPAY ==
[2025-03-07 11:41] VITALS: BP 111/51
[2025-03-07 11:47] VITALS: BMI 33.0
--- NOTE | 2025-03-07 12:03 | ED.GENMED ---
History of Present Illness
General
Chief Complaint: Fall
Time Seen by Provider: 03/07/25 11:51
Nursing documentation reviewed up to this point in time: agreed with
History of Present Illness
History of Present Illness:
89-year-old male brought to the ER by family for evaluation after he fell this morning. Patient lives in an apartment at assisted living. He uses a walker for ambulation. He states that he was reaching up into his closet when he slipped and fell
backwards. He believes that he landed predominantly towards his left side side. He did strike his head on a table on the way down. He denies loss of consciousness. He reports mild headache. He also reports feeling short of breath-family reports
that he has been very short of breath recently, even prior to today's event. Patient has a chronic history of anemia. He is only on aspirin no other blood thinners. He has a history of chronic back discomfort and did's fracture his lumbar spine
per the family earlier this year
He does have extensive prior medical history including diabetes, CAD, prostate cancer with a chronic indwelling Stephens catheter (last changed 6 weeks ago), hypertension, hyperlipidemia and diabetes
Review of Systems
Review of Systems
Allergies reviewed?: Yes
Phy Exam
Physical Exam
Physical Exam:
Patient is awake, alert, obese, pale appears in no acute distress, head is NC, he has a moderate size palpable scalp hematoma left posterior parietal scalp, PERRL, EOMI mucous membranes moist, conjunctiva pink, heart regular rate and rhythm without
murmurs or ectopy, lungs are clear to auscultation without wheezes rales or rhonchi, no crepitus on palpation of the chest wall, no abnormal chest wall excursion, no JVD, abdomen is soft, obese and nontender on palpation, extremities with symmetric
trace edema, GCS is 15, moving all extremities symmetrically without focal deficit, no bony pain on palpation x 4 extremities, mild diffuse pain on palpation of thoracic and lumbar spine, no step-offs, no crepitus, no ecchymosis
Course
Orders/Labs/Results
Orders:
Orders
03/07/25 11:46
Electrocardiogram (*1) Urgent
Reason for Study: Shortness of Breath
EKG- Treatment ONCE
03/07/25 11:59
[address] Cervical Spine W/o Iv Contr Urgent
Comment:
Reason For Exam: trauma
CT Chest/abd/pel W Iv Cont Urgent
Reason For Exam: trauma, hypoxia
CT Head W/o Iv Contrast Urgent
Comment:
Reason For Exam: trauma
Cardiac Monitoring- Treatment ONCE
Acetaminophen [Tylenol] 1,000 mg PO NOW STA
Morphine Sulfate 4 mg IV NOW STA
O2 Therapy [RESP] Urgent
Nasal Cannula Liter Flow: 2 LPM
Titrate/Wean O2 to maintain O2 sat greater than (%): 94
03/07/25 12:09
Complete Blood Count/With Diff Urgent
Comprehensive Metabolic Panel Urgent
NT-proBNP Urgent
Troponin I Urgent
03/07/25 14:31
Cervical Collar- Treatment ONCE
Collar Type: Hard Cervical Collar
Abnormal Lab Results
03/07/25
12:09
RBC 2.78 L 10^6/uL
(4.70-6.10)
Hgb 8.8 L g/dL
(13.0-18.0)
Hct 27.8 L %
(39.0-52.0)
MCV 100.0 H fL
(80.0-94.0)
MCH 31.7 H pg
(27.0-31.0)
MCHC 31.7 L g/dL
(33.0-37.0)
RDW 15.9 H %
(11.5-14.5)
MPV 10.5 H fL
(7.4-10.4)
Abs Immat Gran (auto) 0.1 H 10^3/uL
(0-0.05)
Immature Gran % 1.0 H %
(0-0.5)
Sodium 133 L mmol/L
(135-145)
BUN 26 H mg/dl
(9-20)
Glucose 280 H mg/dl
(70-99)
AST 81 H U/L
(17-59)
ALT 96 H U/L
(0-50)
Alkaline Phosphatase 134 H U/L
(38-126)
03/07/25 12:09
03/07/25 12:09
Decrease in hemoglobin by 2 g compared to prior value use from April 2024, glucose elevated at 280, no evidence for DKA, mild elevation of all LFTs. Troponin elevated to an indeterminate level. BNP limits minimally elevated
Vital Signs
Initial and Last Documented VS:
Initial Vital Signs
Temp Pulse Resp BP Pulse Ox
97.6 F 65 16 111/51 94
03/07/25 11:41 03/07/25 11:41 03/07/25 11:41 03/07/25 11:41 03/07/25 11:41
Last Documented Vital Signs
Temp Pulse Resp BP Pulse Ox
97.6 F 75 16 129/57 96
03/07/25 11:41 03/07/25 15:00 03/07/25 15:00 03/07/25 15:00 03/07/25 14:45
MDM/Problems Addressed
Differential Diagnosis Includes:
Differential diagnosis to consider but not limited to intracranial hemorrhage, skull fracture, occult C-spine injury, thoracic or lumbar spine fracture, rib fracture, pulmonary contusion, pneumothorax along with other etiologies considered
Chronic conditions affecting care:
as per HPI
*Radiology
Radiology exam reviewed: radiology read reviewed (I reviewed all CT results most concerning for C7 fracture, T8 fracture, L3-L4 fracture, nondisplaced sacral fracture, right hemothorax and tiny right apical pneumothorax)
*Pulse Oximetry
SaO2: 91
Nasal Cannula flow liters per minute: 0
Oxygen Mode of Delivery: Room air
Patient hypoxic: yes
Comment: Patient placed on 4 L nasal cannula with improvement to 94%
*EKG
Interpreted by ED Provider?: Yes (I independently viewed and interpreted twelve-lead EKG showing first-degree AV block, rate 68, leftward axis, T wave inversions in the inferior leads, no ST elevation, T wave inversions are new compared to prior EKG
from 04/14/2024)
*Database Designer Interpretation
Rate: normal (I independently viewed and interpreted rhythm strip showing first-degree AV block, no ectopy)
*Critical Care Note
Total Time (30-74mins, 75-104mins- exclusive of procedures): . See note
comment:
Critical care statement: A total of 37 minutes of critical care time was provided for this patient. This includes management of unstable vital signs, evaluation of the patient at bedside, reviewing the patient's pertinent medical records, discussion
with consultants, review of old EKGs and review of pertinent medical records. This time with separate from time utilized to perform the aforementioned documented procedures
Update Note
Update Note:
Patient with stable appearance. Blood pressure stable. Did patient given morphine to tolerate laying flat on the CAT scan table. I reviewed all test results with patient and son present at bedside. I discussed with them need for transfer to
trauma center given her multiple findings. They would like to be transferred to [place] for further evaluation
I reviewed full patient presentation with on-call trauma attending at [facility], Dr. Salas. I reviewed with the multiple findings on CT scan along with stable appearance of patient at the current time. He accepts patient for ER to ER
transfer for further evaluation and care. I updated patient and family members present at bedside. Transfer consent forms signed. C-collar is placed. Will order dose of morphine to help facilitate patient comfort for transfer. They have no
questions at the current time
ED Attending Note
-
Portions of this chart may have been created with voice recognition software.� Occasional wrong word or��sound alike� substitutions may have occurred due to the inherent limitations of voice recognition software.
Discharge Plan
Departure
Patient Disposition: Acute Care Hospital
Date of Disposition: 03/07/25
Time of Disposition: 15:20
Admit to doctor: Lobo Salas
Discharge Problem:
Closed C7 fracture, Closed T8 spinal fracture, Compression fracture of L3 vertebra, Closed L4 vertebral fracture, Closed sacral fracture, Hemothorax on right, Pneumothorax, Anemia
Prescriptions:
No Action
atorvastatin 20 mg Tablet
20 mg PO HS
therapeutic multivitamin Tablet
1 tab PO DAILY
aspirin 81 mg Tablet,Delayed Release (Dr/Ec)
81 mg PO DAILY
metformin 1,000 mg Tablet
1,000 mg PO BID
losartan 25 mg Tablet
25 mg PO DAILY
ibuprofen 200 mg Tablet
400 mg PO Q8HPRN PRN (Reason: mild pain)
metoprolol succinate 25 mg Tablet Extended Release 24 Hr
12.5 mg PO DAILY
glipizide 5 mg Tablet
5 mg PO BID
acetaminophen [Tylenol Extra Strength] 500 mg Tablet
1,000 mg PO TID Qty: 20 0RF
tramadol 50 mg Tablet
25 mg PO Q6HPRN PRN (Reason: MODERATE PAIN) Qty: 5 0RF
Lyumjev U-100 Insulin 100 unit/mL solution
1 sliding scale dose SC DIRECTED Qty: 10 0RF
Referrals:
Josh Varela MD [Family Provider, Internal Medicine]
Hospital Transfer
Other hospital: [facility]
I certify that the patient requires transfer: Yes
Discussed case with accepting physician: Lobo Salas
Reason for transfer: higher level of care
Interventions
Interventions:
*Risk Screen - Suicide Last Done: 03/07/25 11:48
*General Assessment Last Done: 03/07/25 11:48
*Neglect/Abuse Screening Last Done: 03/07/25 11:48
*ED COVID-19 Vaccine History Last Done: 03/07/25 11:48
*ED Influenza Vaccine History Last Done: 03/07/25 11:48
[facility] Fall Risk Assessment Tool Last Done: 03/07/25 11:44
ED-Musculoskeletal Assessment Last Done: 03/07/25 11:46
ED- Neurological Assessment Last Done: 03/07/25 11:46
ED-Skin Assessment Last Done: 03/07/25 11:46
Discharge Date and Time
Print Language: GERMAN
[2025-03-07] MEDS: TYLENOL 1000 MG PO (12:11)
[2025-03-07] MEDS: MORPHINE SULFATE 4 MG IV ×2 (12:11→16:36)
[2025-03-07 12:22] LABS: Hematocrit 27.8 % (39.0-52.0); Hemoglobin 8.8 g/dL (13.0-18.0); Mean Corp Hgb Conc. 31.7 g/dL (33.0-37.0); Mean Corpuscular Volume 100.0 fL (80.0-94.0); Nucleated Red Blood Cells % 0 % (-); Platelet Count 147 10^3/uL (130-400); Red Cell Dist. Width 15.9 % (11.5-14.5)
[2025-03-07 12:39] LABS: ALT (SGPT) 96 U/L (0-50); AST (SGOT) 81 U/L (17-59); Albumin 3.8 g/dl (3.5-5.0); Alkaline Phosphatase 134 U/L (38-126); Blood Urea Nitrogen 26 mg/dl (9-20); Calcium 9.0 mg/dl (8.4-10.2); Carbon Dioxide 23 mmol/L (22-30); Chloride 101 mmol/L (98-107); Estimated Creatinine Clearance 61 ml/min; Glucose 280 mg/dl (70-99); Potassium 4.9 mmol/L (3.5-5.1); Sodium 133 mmol/L (135-145); Total Protein 7.0 g/dl (6.3-8.2); eGFR > 60.00
[2025-03-07 12:49] LABS: Troponin I 0.024 ng/ml
[2025-03-07 13:57] VITALS: BP 146/58
[2025-03-07 14:00] VITALS: BP 135/75
[2025-03-07 15:00] VITALS: BP 129/57
[2025-03-07 16:00] VITALS: BP 130/52
== END 2025-03-07 16:46 | disposition short-term general hospital (02) ==
LOC: EMR 11:32
PROVIDERS: EMERGENCY PHYSICIAN Emergency Medicine; FAMILY PHYSICIAN Internal Medicine
DX: S12.601A Unspecified nondisplaced fracture of seventh cervical vertebra, initial encounter for closed fracture (principal); S32.038A Other fracture of third lumbar vertebra, initial encounter for closed fracture; S32.048A Other fracture of fourth lumbar vertebra, initial encounter for closed fracture; S22.060A Wedge compression fracture of T7-T8 vertebra, initial encounter for closed fracture; S32.10XA Unspecified fracture of sacrum, initial encounter for closed fracture; S27.2XXA Traumatic hemopneumothorax, initial encounter; S00.03XA Contusion of scalp, initial encounter; W01.10XA Fall on same level from slipping, tripping and stumbling with subsequent striking against unspecified object, initial encounter; D64.9 Anemia, unspecified; E11.9 Type 2 diabetes mellitus without complications; E78.5 Hyperlipidemia, unspecified; I10 Essential (primary) hypertension; I25.10 Atherosclerotic heart disease of native coronary artery without angina pectoris; Z85.46 Personal history of malignant neoplasm of prostate; I44.0 Atrioventricular block, first degree
CPT/HCPCS: 99291; 96374; 96376; 70450; 71260; 72125; 74177; 80053; 83880; 84484; 85025; 93005; Q9967